=== PATIENT | male | born 1955 | race Caucasian/White ===

== ENCOUNTER → 2017-08-20 | Outpatient (CLI) | payer OTHER | END | disposition home or self-care (01) | LOC: KCIC MRI 07:46 | DX: S83.411A Sprain of medial collateral ligament of right knee, initial encounter (principal); M17.11 Unilateral primary osteoarthritis, right knee; M67.461 Ganglion, right knee; M22.41 Chondromalacia patellae, right knee; M25.461 Effusion, right knee; X58.XXXA Exposure to other specified factors, initial encounter; Y93.89 Activity, other specified; Y92.89 Other specified places as the place of occurrence of the external cause; Y99.8 Other external cause status | CPT/HCPCS: 73721 ==

== ENCOUNTER 2018-03-17 11:12 | Emergency (ER) | payer BC, OTHER ==
[~2018-03-17] VITALS: Ht 175.3 cm; Wt 94.3 kg
[2018-03-17] MEDS ORDERED: IV NORMAL SALINE 1000ML BAG 1,000 ML IV SCH (11:24)
[2018-03-17] MEDS ORDERED: ASPIRIN CHEWABLE 81 MG TABLET. PO ONE (11:30)
--- NOTE | 2018-03-17 11:37 | EKG ---
[facility] [address] [place] [address] Test Date: 2018-03-17 Test Time: 11:14:12 Pat Name: OSIRIS MELGAR Department: Room: Gender: M Heel Turner: : 1955 Requested By: NADER JIMENEZ Order Number: [id number] Reading MD: Suman Arreguin MD Measurements Intervals [place] Rate: 110 P: 59 [place]: 162 QRS: -26 QRSD: 70 T: 40 QT: 310 QTc: 425 Interpretive Statements SINUS TACHYCARDIA NON-SPECIFIC ST/T CHANGES Electronically Signed On 03-21-2018 8:43:02 CDT by Suman Arreguin MD
[2018-03-17 11:41] LABS: BASO % 0 % (0-3); EOS # 0.4 x10^3/uL (0.0-0.7); EOS % 5 % (0-3); HEMATOCRIT 43.2 % (39.0-53.0); HEMOGLOBIN 14.9 g/dL (13.0-17.5); LYMPH # 2.2 x10^3/uL (1.0-4.8); LYMPH % 25 % (24-48); MEAN CORPUSCULAR HEMOGLOBIN 29 pg (25-35); MEAN CORPUSCULAR HGB CONC 35 g/dL (31-37); MEAN CORPUSCULAR VOLUME 84 fL (79-100); MONO # 0.8 x10^3/uL (0.0-1.1); MONO % 9 % (0-9); NEUT # 5.5 x10^3uL (1.8-7.7); NEUT % 61 % (31-73); PLATELET COUNT 306 x10^3/uL (140-400); RED BLOOD COUNT 5.17 x10^6/uL (4.30-5.70); RED CELL DISTRIBUTION WIDTH 14.4 % (11.5-14.5)
[2018-03-17 11:48] LABS: CALCIUM 9.1 mg/dL (8.5-10.1); GFR 76.2
[2018-03-17 11:53] LABS: PROTHROMBIN TIME PATIENT 13.4 SEC (11.7-14.0)
[2018-03-17 11:54] LABS: ALBUMIN 3.4 g/dL (3.4-5.0); ALBUMIN/GLOBULIN RATIO 0.9 (1.0-1.7); MAGNESIUM 1.9 mg/dL (1.8-2.4); TOTAL BILIRUBIN 0.3 mg/dL (0.2-1.0); TOTAL PROTEIN 7.4 g/dL (6.4-8.2)
--- NOTE | 2018-03-17 11:56 | RAD ---
PORTABLE CHEST 1V Clinical Indication: CHEST PAIN TODAY, Comparison: Two-view chest December 07, 2013. Findings: Mildly tortuous thoracic aorta. Cardiac size is normal. Lungs are hyperexpanded. Lungs are clear. There is no pneumothorax. No pleural effusion is appreciated. No acute bone abnormality. IMPRESSION: No acute cardiopulmonary process. Electronically signed by: Eber Titus MD (03/17/2018 11:53 AM) [id number]
[2018-03-17 14:40] VITALS: BP 114/79
--- NOTE | 2018-03-17 14:55 | PHYS DOC ---
Past Medical History Past Medical History: Diabetes-Type II Past Surgical History: No Surgical History Adult General Chief Complaint Chief Complaint: RAPID HEART RATE HPI HPI Patient is a 62-year-old male who presents with report of rapid heartbeat that started approximately an hour prior to his arrival. Patient states that he was getting short of breath and he decided to call EMS. EMS had presented and performed EKG and found the patient was in SVT. Patient was given 2 doses of Adenocard, first 6 mg then 12 mg after which patient had rastafari of a normal sinus rhythm. Patient indicates that he has had no chest pain. He states that shortness of breath as per the much resolved at this point. He indicates that he has had numerous episodes just like this in the past but they had always spontaneously resolved. Patient does admit to use of caffeine on a daily basis. He states that he has never seen a child development director for this. Review of Systems Review of Systems Constitutional: Denies fever or chills [] Respiratory: Denies cough. Admits to dyspnea on exertion.[] Cardiovascular: Denies chest pain. Complains of palpitations.[] GI: Denies abdominal pain, nausea, vomiting [] : Denies dysuria or hematuria [] Musculoskeletal: Denies back pain or joint pain [] Integument: Denies rash or skin lesions [] Neurologic: Denies headache, focal weakness or sensory changes [] Endocrine: Denies polyuria or polydipsia [] All other systems were reviewed and found to be within normal limits, except as documented in this note. Current Medications Current Medications Current Medications Medications (Trade) Dose Ordered Sig/Mikhail Start Time Stop Time Status Last Admin Dose Admin Aspirin (Children'S Aspirin) 324 mg 1X ONCE 03/17/18 11:30 03/17/18 12:01 DC 03/17/18 11:30 324 MG Sodium Chloride 1,000 ml @ 1,000 mls/hr Q1H 03/17/18 11:24 03/17/18 12:23 DC 03/17/18 11:24 1,000 MLS/HR Allergies Allergies Allergies Coded Allergies Type Severity Reaction Last Updated Verified No Known Drug Allergies 03/17/18 No Physical Exam Physical Exam Constitutional: Well developed, well nourished, no acute distress, non-toxic appearance. [] HENT: Normocephalic, atraumatic, bilateral external ears normal, oropharynx moist, no oral exudates, nose normal. [] Eyes: PERRLA, EOMI, conjunctiva normal, no discharge. [] Neck: Normal range of motion, no tenderness, supple, no stridor. [] Cardiovascular:Heart rate regular rhythm, no murmur [] Lungs & Thorax: Bilateral breath sounds clear to auscultation [] Abdomen: Bowel sounds normal, soft, no tenderness, no masses, no pulsatile masses. [] Skin: Warm, dry, no erythema, no rash. [] Back: No tenderness, no CVA tenderness. [] Extremities: No tenderness, no cyanosis, no clubbing, ROM intact, no edema. [] Neurologic: Alert and oriented X 3, normal motor function, normal sensory function, no focal deficits noted. [] Psychologic: Affect normal, judgement normal, mood normal. [] Current Patient Data Vital Signs Vital Signs Date Time Temp Pulse Resp B/P (MAP) Pulse Ox O2 Delivery O2 Flow Rate FiO2 03/17/18 14:40 86 20 114/79 (91) 98 03/17/18 11:23 97.6 Nasal Cannula 2.0 97.6 Lab Values Laboratory Tests Test 03/17/18 11:19 03/17/18 11:20 03/17/18 13:50 Glucose (Fingerstick) 191 mg/dL (70-99) H White Blood Count 9.0 x10^3/uL (4.0-11.0) Red Blood Count 5.17 x10^6/uL (4.30-5.70) Hemoglobin 14.9 g/dL (13.0-17.5) Hematocrit 43.2 % (39.0-53.0) Mean Corpuscular Volume 84 fL (79-100) Mean Corpuscular Hemoglobin 29 pg (25-35) Mean Corpuscular Hemoglobin Concent 35 g/dL (31-37) Red Cell Distribution Width 14.4 % (11.5-14.5) Platelet Count 306 x10^3/uL (140-400) Neutrophils (%) (Auto) 61 % (31-73) Lymphocytes (%) (Auto) 25 % (24-48) Monocytes (%) (Auto) 9 % (0-9) Eosinophils (%) (Auto) 5 % (0-3) H Basophils (%) (Auto) 0 % (0-3) Neutrophils # (Auto) 5.5 x10^3uL (1.8-7.7) Lymphocytes # (Auto) 2.2 x10^3/uL (1.0-4.8) Monocytes # (Auto) 0.8 x10^3/uL (0.0-1.1) Eosinophils # (Auto) 0.4 x10^3/uL (0.0-0.7) Basophils # (Auto) 0.0 x10^3/uL (0.0-0.2) Prothrombin Time 13.4 SEC (11.7-14.0) Prothrombin Time INR 1.1 (0.8-1.1) Sodium Level 136 mmol/L (136-145) Potassium Level 4.0 mmol/L (3.5-5.1) Chloride Level 100 mmol/L (98-107) Carbon Dioxide Level 26 mmol/L (21-32) Anion Gap 10 (6-14) Blood Urea Nitrogen 14 mg/dL (8-26) Creatinine 1.0 mg/dL (0.7-1.3) Estimated GFR (Cockcroft-Gault) 76.2 BUN/Creatinine Ratio 14 (6-20) Glucose Level 181 mg/dL (70-99) H Calcium Level 9.1 mg/dL (8.5-10.1) Magnesium Level 1.9 mg/dL (1.8-2.4) Total Bilirubin 0.3 mg/dL (0.2-1.0) Aspartate Amino Transferase (AST) 10 U/L (15-37) L Alanine Aminotransferase (ALT) 24 U/L (16-63) Alkaline Phosphatase 62 U/L (46-116) Troponin I Quantitative < 0.017 ng/mL (0.000-0.055) < 0.017 ng/mL (0.000-0.055) GN-Urs-P-Type Natriuretic Peptide 77 pg/mL (0-124) Total Protein 7.4 g/dL (6.4-8.2) Albumin 3.4 g/dL (3.4-5.0) Albumin/Globulin Ratio 0.9 (1.0-1.7) L Thyroid Stimulating Hormone (TSH) 5.810 uIU/mL (0.358-3.74) H Laboratory Tests 03/17/18 11:20 Laboratory Tests 03/17/18 11:20 EKG EKG [] Radiology/Procedures Radiology/Procedures [] Course & Med Decision Making Course & Med Decision Making Pertinent Labs and Imaging studies reviewed. (See chart for details) [] Dragon Disclaimer Dragon Disclaimer This electronic medical record was generated, in whole or in part, using a voice recognition dictation system. Departure Departure Impression: Primary Impression: Supraventricular tachycardia Disposition: HOME, SELF-CARE Condition: STABLE Referrals: ROSHNI PERALTA DO (PCP) Patient Instructions: Supraventricular Tachycardia Additional Instructions: Follow-up with your primary care provider in the next 1-2 days. I would recommend discontinuing use of caffeinated beverages/supplements. NADER JIMENEZ Jr., DO Mar 17, 2018 14:55
== END 2018-03-17 15:00 | disposition home or self-care (01) ==
LOC: ER 11:12
DX: I47.1 Supraventricular tachycardia (principal); R06.02 Shortness of breath; R00.2 Palpitations; E11.9 Type 2 diabetes mellitus without complications
CPT/HCPCS: 36415; 71045; 80053; 82962; 83735; 83880; 84443; 84484; 85025; 85610; 93005; 99285; J7030